=== PATIENT | female | born 1980 | race Caucasian/White ===

== ENCOUNTER 2021-11-05 11:52 | Emergency (ER) | payer OTHER, SELFPAY ==
--- NOTE | 2021-11-05 12:02 | ED.URI ---
HPI - URI/Sore Throat General Chief Complaint: Upper Respiratory Infection Stated Complaint: sore throat Time Seen by Provider: 11/05/21 12:03 Source: patient and RN notes reviewed History of Present Illness HPI Narrative: Patient is a 41-year-old female who presents the urgent care with complaints of sore throat since this weekend. Patient states that she has been Covid vaccinated however has had a positive exposure last Thursday. Patient denies of any fever, nausea, vomiting. States that she has had a mild cough. No other acute complaints. No acute distress noted. Patient aware of the plan of care. Some parts of this dictation were generated by voice recognition software and may contain typographical and/or grammatical inaccuracies. Related Data Home Medications Medication Instructions Recorded Confirmed alprazolam 0.25 mg PO TID PRN 11/05/21 11/05/21 rizatriptan 10 mg PO DAILY PRN 11/05/21 11/05/21 Allergies Allergy/AdvReac Type Severity Reaction Status Date / Time fluconazole Allergy Mild Rash Verified 11/05/21 12:25 Review of Systems Review of Systems: CONSTITUTIONAL: Denies fever, chills, or sweats. EYES: Denies visual changes, redness, or discharge. ENT: Reports of sore throat and postnasal drainage CARDIOVASCULAR: Denies chest pain, palpitations, or edema. RESPIRATORY: Reports a mild cough that dyspnea GASTROINTESTINAL: Denies abdominal pain, nausea, vomiting, or diarrhea. GENITOURINARY: Denies dysuria or hematuria. SKIN: Denies rash or itching. MUSCULOSKELETAL: Denies back pain, joint pain, or myalgia. NEUROLOGIC: Denies headache, numbness, or weakness. All other systems reviewed are negative, except as documented in HPI. PMFSH Comments At the time of my signature, I reviewed and agree with the nursing past medical, surgical, social, and family history. There is no relevant family history pertinent to the patient complaint. Exam Narrative: GENERAL: This is a well-nourished, well-developed patient, in no apparent distress. HEAD: normocephalic, atraumatic. EYES: PERRL. Sclera clear/white. Vision is grossly intact. EARS: External ears normal, auditory canals clear and without drainage, TMs normal without perforation. Hearing grossly intact. NOSE: External nose normal with no obvious nasal discharge, nares without redness, no rhinorrhea. THROAT: Mucous membranes moist, posterior pharynx clear. Mild postnasal drainage NECK: Neck supple, non-tender without lymphadenopathy CARDIOVASCULAR: Regular rate and rhythm without murmurs, gallops, or rubs. RESPIRATORY: Clear to auscultation. Breath sounds equal bilaterally. No wheezes, rales, or rhonchi. SKIN: warm, intact with no suspicious lesions or rash, good texture and turgor. NEURO: awake, alert, and oriented to person, place and time. There were no obvious focal neurologic abnormalities. EXTREMITIES: No clubbing, cyanosis, or edema. Course Course Level of Care: Express Care Visit Vital Signs Vital signs: Vital Signs Temperature 98.8 F 11/05/21 12:04 Pulse Rate 93 11/05/21 12:04 Respiratory Rate 18 11/05/21 12:04 Blood Pressure 127/89 11/05/21 12:04 Pulse Oximetry 99 11/05/21 12:04 Temperature 98.8 F 11/05/21 12:04 Pulse Rate 93 11/05/21 12:04 Respiratory Rate 18 11/05/21 12:04 Blood Pressure 127/89 11/05/21 12:04 Pulse Oximetry 99 11/05/21 12:04 Reviewed MDM - URI/Sore Throat MDM Narrative Medical decision making narrative: Reviewed lab results with the patient. She is aware that strep was negative. Educated patient on culture we'll call within 72 hours if culture is positive and antibiotics necessary. Considering your symptoms and your recent exposure to Covid, it is important that you stay quarantine until your PCR results are back. We will be calling you within 2 to 3 days to let you know your results. We're not a Covid testing site and therefore if you wish to have your family tested?you may follow-up outpati
[2021-11-05 12:04] VITALS: BP 127/89; PULSE 93; RESP 18; TEMP 37.1; O2SAT 99
[2021-11-06 14:39] LABS: SARS-CoV-2 RNA PCR Positive
== END 2021-11-05 12:48 | disposition home or self-care (01) ==
PROVIDERS: Emergency Provider Nurse Practitioner Family; PCP Family Medicine
DX: U07.1 COVID-19 (principal); F41.9 Anxiety disorder, unspecified
CPT/HCPCS: 87081; 87880; 99213; C9803; G0463; U0003; U0005